=== PATIENT | female | born 1945 | race Caucasian/White ===

== ENCOUNTER 2016-11-16 07:48 | Day surgery (SDC) | payer MEDICARE ==
[~2016-11-16 07:48] MED LIST: ADULT ASPIRIN81 MG PO; AMBIEN10 MG PO; AMBIEN5 MG; AMBIEN5 MG PO; ARISTOCORT A 0.15 GM; ASPIR 8181 M1 PO; ASPIR-LOW81 MG; ASPIRIN81 MG; ATARAX25 MG PO; B COMPLEX1 EAC1 PO; BACTRIM 400-801 EAC1 PO; BACTRIM DS TAB1 EAC1 PO; BACTRIM DS TABL1 TAB; BACTRIM DS TABL1 TAB PO; BACTRIM DS1 TA1 PO; BACTRIM1 TAB PO; BENADRYL50 MG; BENEFIBER PO; BUPROPION HCL150 M3 PO; BUPROPION XL150 MG PO; CARDIZEM30 M1 PO; CARDIZEM30 MG PO; CARDIZEM90 MG PO; CARTIA XT300 MG; CELEBREX100 MG; CELEXA20 MG PO; CETRIZINE PO; CINNAMON500 M1 PO; CINNAMON500 MG; CINNAMON500 MG PO; CIPRO500 MG PO; CLARITIN10 MG; CLARITIN10 MG PO; CLINORIL150 MG PO; COLACE100 MG; COLACE100 MG PO; CYMBALTA30 M1 PO; CYMBALTA60 M1 PO; DAILY VALUE1 EAC1 PO; DIFLUCAN100 M1 PO; DIFLUCAN100 MG; DILTIAZEM 24HR180 MG PO; DILTIAZEM 24HR300 MG PO; DILTIAZEM PO; DITROPAN XL10 M3 PO; DITROPAN XL10 MG PO; DITROPAN XL15 MG PO; DOCUSATE SODIU100 M2 PO; DOCUSATE SODIU100 MG PO; DOCUSATE SODIUM PO; ENABLEX15 MG PO; FISH OIL 1,0001 CA PO; FISH OIL 1,0001 EAC6 PO; FISH OIL1 CAP; FLEXERIL10 MG; GLUCOPHAGE1000 MG; GLUCOSAMINE & C1 CAP; GLUCOSAMINE & C1 CAP PO; GLUCOSAMINE PO; GLUCOSAMINE/MSM1 TAB PO; GLUCOSAMINE1000 MG PO; GUAIFENESIN400 MG; HUMALOG100 UNITS/ SC; HYDROXYZINE HCL25 M1 PO; IMDUR30 MG PO; ISOSORBIDE MONO30 M4 PO; KADIAN30 MG; KEFLEX500 M1 PO; KLOR-CON 1010 MEQ; LEVAQUIN500 MG PO; LEVOTHYROXINE100 MCG PO; LYRICA150 MG PO; LYRICA200 M1 PO; LYRICA50 MG; LYRICA75 MG; MAGNESIUM400 M1 PO; MAGNESIUM400 MG PO; MAGNESIUM500 M1 PO; METFORMIN HCL1000 MG; METFORMIN HCL1000 MG PO; METFORMIN HCL500 MG; METHADONE HCL10 M1 PO; METHADONE HCL5 M2 PO; METHADONE10 MG/TAB PO; METHADONE5 MG PO; MIRALAX12 EA PO; MIRALAX17 G1 PO; MIRALAX17 G2 PO; MIRALAX17 GM PO; MOBIC15 M1 PO; MOBIC15 M2 PO; MOBIC15 MG PO; MORPHINE; MORPHINE PUMP; MORPHINE SULFAT1; MORPHINE SULFAT15 M PO; MULTIVITAMIN W/1 T PO; MULTIVITAMIN1 TAB; MYCOSTATIN15 GM TP; NEURONTIN300 M1 PO; NEURONTIN400 MG; NEURONTIN800 MG; NEXIUM40 MG PO; NIACIN1000 M1 PO; NIACIN1000 MG; NIACIN1000 MG PO; NIASPAN500 MG; NITROGLYCERIN0.4 MG SL; NITROSTAT0.4 MG SL; NITROSTAT0.4 MG/TAB SL; NORCO 5/325 TAB1 TAB PO; NYSTATIN PO; NYSTATIN1 EAC5 TP; NYSTATIN10 GM PO; NYSTATIN10 GM TP; NYSTOP15 GM; NYSTOP60 GM TOP; OMEPRAZOLE20 MG; POTASSIUM CHLO10 ME2 PO; POTASSIUM CHLO10 MEQ; POTASSIUM CHLO10 MEQ PO; PRILOSEC20 MG PO; PRISTIQ50 MG; PROBIOTIC1 EAC1 PO; PROBIOTIC1 EAC4 PO; PROBIOTIC1 EAC8 PO; PROTONIX40 M1 PO; PROTONIX40 M2 PO; SMZ-TMP DS 800-1 TAB PO; SULFAMYLON SOL250 M1; SULFAMYLON SOL250 M1 EXT; SULFAMYLON SOL250 M1 TOP; SULINDAC150 MG; SYMBICORT 80-41 PUFF INH; SYNTHROID100 MC1 PO; SYNTHROID100 MCG; SYNTHROID125 MCG; TOPAMAX25 MG PO; TRAZODONE50 MG PO; TRIAMTERENE-HCT1 T; TRIAMTERENE-HCT1 T PO; TYLENOL325 M2 PO; TYLENOL325 MG PO; ULTRAM ER100 M1 PO; ULTRAM ER100 MG PO; ULTRAM50 MG PO; VITAMIN B COMPL PO; VITAMIN B-12500 MCG PO; VITAMIN B12-FO1 EAC1 PO; VITAMIN B12100 MCG; VITAMIN B1250 MCG; VITAMIN B12500 MCG PO; VITAMIN B125000 MCG PO; VITAMIN C PO; VITAMIN C1000 MG; VITAMIN C500 M1 PO; VITAMIN C500 M3 PO; VITAMIN D1000 UNI1; VITAMIN D1000 UNIT PO; XANAX0.25 M1 PO; XANAX0.25 MG PO; ZOFRAN4 M2 PO; ZOLOFT100 MG; ZYRTEC10 M3 PO; ZYRTEC10 M7 PO; ZYRTEC10 MG PO; ZYRTEC5 MG; [UNRECOGNIZED DRUG - CODE] PO; [UNRECOGNIZED DRUG - OTHER] PO; [UNRECOGNIZED DRUG - OTHER] PO; [UNRECOGNIZED DRUG - OTHER] TOP; [UNRECOGNIZED DRUG - OTHER] TP
== END 2016-11-16 15:30 ==
LOC: SRG 07:48 → SHSB 07:55 → ORW 11:46 → SHSB 14:00
PROC: 0WUF0JZ Supplement Abdominal Wall with Synthetic Substitute, Open Approach (ICD-10-PCS; principal; 2016-11-16)
DX: T81.31XD Disruption of external operation (surgical) wound, not elsewhere classified, subsequent encounter (principal); K43.6 Other and unspecified ventral hernia with obstruction, without gangrene; T81.4XXD Infection following a procedure, subsequent encounter; L02.211 Cutaneous abscess of abdominal wall; I25.2 Old myocardial infarction; I25.10 Atherosclerotic heart disease of native coronary artery without angina pectoris; I10 Essential (primary) hypertension; E66.9 Obesity, unspecified; M19.90 Unspecified osteoarthritis, unspecified site; E11.9 Type 2 diabetes mellitus without complications; E03.9 Hypothyroidism, unspecified; F32.9 Major depressive disorder, single episode, unspecified; K21.9 Gastro-esophageal reflux disease without esophagitis; K44.9 Diaphragmatic hernia without obstruction or gangrene; Z79.82 Long term (current) use of aspirin; Z79.899 Other long term (current) drug therapy; Z88.5 Allergy status to narcotic agent; Z91.048 Other nonmedicinal substance allergy status; Z86.73 Personal history of transient ischemic attack (TIA), and cerebral infarction without residual deficits; Z87.11 Personal history of peptic ulcer disease; Z86.14 Personal history of Methicillin resistant Staphylococcus aureus infection; Z90.49 Acquired absence of other specified parts of digestive tract; Z90.711 Acquired absence of uterus with remaining cervical stump; Z98.890 Other specified postprocedural states
CPT/HCPCS: C1781; J3010; J3370; J7050